=== PATIENT | female | born 1985 | race Caucasian/White ===

== ENCOUNTER → 2023-12-10 08:02 | Outpatient (REF) | payer OTHER, SELFPAY ==
[2023-12-10 09:06] LABS: % Basophils 0.5 % (0-2); % Eosinophils 0.7 % (0-6); % Immature Granulocytes 0.5 % (0-0.5); % Monocytes 9.2 % (1.7-9.3); % Neutrophils 55.1 % (42.2-75.2); Absolute Monocytes 0.5 10^3/uL (0.1-0.6); Absolute Neutrophils 3.2 10^3/uL (1.4-6.5); Hematocrit 38.9 % (37.0-47.0); Mean Corp Hgb Conc. 33.4 g/dL (33.0-37.0); Mean Corpuscular Hgb 27.7 pg (27.0-31.0); Mean Corpuscular Volume 82.9 fL (81.0-99.0); Mean Platelet Volume 9.1 fL (7.4-10.4); Nucleated Red Blood Cells % 0 %; Platelet Count 246 10^3/uL (130-400); Red Blood Cell Count 4.69 10^6/uL (4.20-5.40); Red Cell Dist. Width 12.3 % (11.5-14.5); Urine Albumin Negative (Neg - Trace); Urine Bilirubin 1+ (Negative); Urine Character Clear (Clear); Urine Color Yellow; Urine Glucose Negative (Negative); Urine Ketone Negative (Negative); Urine Leukocyte Negative (Negative); Urine Nitrite Negative (Negative); Urine Occult Blood 3+ (Negative); Urine Urobilinogen Negative (Neg - 1+); White Blood Cell Count 5.8 10^3/uL (4.8-10.8)
[2023-12-10 09:12] LABS: Urine Squamous Cell 26-30 /LPF (Few)
[2023-12-10 09:13] LABS: Urine Bacteria Few (Negative)
[2023-12-10 09:29] LABS: ALT (SGPT) 21 U/L (0-35); AST (SGOT) 40 U/L (14-36); Albumin 4.5 g/dl (3.5-5.0); Alkaline Phosphatase 45 U/L (38-126); Blood Urea Nitrogen 17 mg/dl (7-17); Calcium 9.2 mg/dl (8.4-10.2); Carbon Dioxide 24 mmol/L (22-30); Chloride 106 mmol/L (98-107); Glucose 96 mg/dl (70-99); HDL Cholesterol 67 mg/dl; Iron 176 ug/dl (37-170); LDL Cholesterol, Calculated 91 mg/dl; Sodium 136 mmol/L (135-145); Total Bilirubin 1.1 mg/dl (0.2-1.3); Total Cholesterol 172 mg/dl (50-199); Total Protein 7.4 g/dl (6.3-8.2); Triglyceride 74 mg/dl (10-149); Very Low Density Lipoprotein 14 mg/dl (0-30); eGFR > 60.00
[2023-12-10 09:33] LABS: C-Reactive Protein < 5.00 mg/L (0.0-10.00)
[2023-12-10 09:39] LABS: Percent Saturation 58 % (20-50); Total Iron Binding Capacity 299 ug/dl (265-497)
[2023-12-10 09:46] LABS: Erythrocyte Sed Rate 2 mm/hour (0-20)
[2023-12-10 09:51] LABS: Free T3 3.77 pg/ml (2.77-5.27); Free T4 1.03 ng/dl (0.78-2.19); Vitamin D, 25-OH*** 40.1 ng/mL (30-80)
[2023-12-10 09:55] LABS: Progesterone 5.59 ng/ml
[2023-12-10 10:05] LABS: Cortisol, Random 13.7 ug/dl; TSH 1.17 uIU/ml (0.47-4.68)
[2023-12-10 10:09] LABS: Ferritin 32.2 ng/ml (6.24-137)
[2023-12-10 10:10] LABS: Estradiol 50.9 pg/ml
[2023-12-11 12:04] LABS: Thyroglobulin Antibodies 1.5 IU/mL (0.0-4.0); Thyroid Peroxidase Ab (TPO) 0.8 IU/mL (0.0-9.0)
[2023-12-11 21:33] LABS: Insulin, Random 6 uIU/mL
[2023-12-11 21:58] LABS: Homocysteine 7 umol/L (0-15)
[2023-12-11 22:14] LABS: DHEA Sulfate 50 ug/dL (61-337)
[2023-12-12 02:38] LABS: 5-a-Dihydrotestosterone, LC-MS 27.5 pg/mL (24.0-208.0)
[2023-12-12 06:51] LABS: Zinc 77.6 ug/dL (60.0-120.0)
[2023-12-13 09:53] LABS: Free Testosterone 1.6 pg/mL (1.3-9.2); Sex Hormone Binding Globulin 46 nmol/L (25-122); Total Testosterone,Female/Chil 12 ng/dL (9-55)
== END ==
LOC: REG 08:02
PROVIDERS: ATTENDING PHYSICIAN Nurse Practitioner Family; FAMILY PHYSICIAN Family Medicine
DX: D25.9 Leiomyoma of uterus, unspecified (principal); E34.9 Endocrine disorder, unspecified; E55.9 Vitamin D deficiency, unspecified; E53.8 Deficiency of other specified B group vitamins; R53.83 Other fatigue; L70.9 Acne, unspecified
CPT/HCPCS: 36415; 80053; 80061; 81003; 81015; 82306; 82533; 82627; 82642; 82670; 82728; 83090; 83525; 83540; 83550; 83735; 84144; 84270; 84402; 84403; 84439; 84443; 84481; 84630; 85025; 85652; 86140; 86376; 86800

== ENCOUNTER → 2024-01-02 18:32 | Outpatient (REF) | payer OTHER, SELFPAY | LOC: WDC 18:32 | PROVIDERS: ATTENDING PHYSICIAN Family Medicine; FAMILY PHYSICIAN Nurse Practitioner Family | DX: Z12.31 Encounter for screening mammogram for malignant neoplasm of breast (principal) | CPT/HCPCS: 77063; 77067 ==

== ENCOUNTER → 2024-01-20 09:46 | Outpatient (REF) | payer OTHER, SELFPAY | LOC: HWRAD 09:46 | PROVIDERS: ATTENDING PHYSICIAN Nurse Practitioner Family; FAMILY PHYSICIAN Family Medicine | DX: D25.9 Leiomyoma of uterus, unspecified (principal) | CPT/HCPCS: 76830; 76856 ==

== ENCOUNTER → 2024-01-23 07:35 | Outpatient (REF) | payer OTHER, SELFPAY | LOC: HWRAD 07:35 | PROVIDERS: ATTENDING PHYSICIAN Nurse Practitioner Family; FAMILY PHYSICIAN Family Medicine | DX: R31.9 Hematuria, unspecified (principal) | CPT/HCPCS: 76700 ==

== ENCOUNTER → 2024-02-20 06:57 | Outpatient (REF) | payer OTHER, SELFPAY ==
[2024-02-20 07:54] LABS: Urine Albumin Negative (Neg - Trace); Urine Bilirubin Negative (Negative); Urine Character Clear (Clear); Urine Color Yellow; Urine Glucose Negative (Negative); Urine Ketone Negative (Negative); Urine Leukocyte Trace (Negative); Urine Nitrite Negative (Negative); Urine Occult Blood 4+ (Negative); Urine Urobilinogen Negative (Neg - 1+)
[2024-02-20 08:36] LABS: FSH 3.6 mIU/ml; Luteinizing Hormone 4.75 mIU/ml; Progesterone 5.48 ng/ml; Prolactin 28.6 ng/ml (3.0-18.6)
[2024-02-20 08:50] LABS: Estradiol 37.7 pg/ml
[2024-02-20 09:07] LABS: Urine Mucus Few
[2024-02-20 09:08] LABS: Urine Amorphous Seen
[2024-02-20 09:14] LABS: Urine Red Blood Cell 30-40 /HPF (0-2); Urine White Cell 0-2 /HPF (0-5)
[2024-02-20 09:17] LABS: Urine Bacteria Few (Negative)
[2024-02-20 09:27] LABS: Folate 16.3 ng/ml (2.76-20); Vitamin B12 317 pg/ml (239-931)
[2024-02-20 12:49] LABS: Glycohemoglobin (HgbA1c) 5.4 % (4.0-5.6)
[2024-02-21 14:20] LABS: DHEA Sulfate 49 ug/dL (61-337)
== END ==
LOC: REG 06:57
PROVIDERS: ATTENDING PHYSICIAN Nurse Practitioner Family
DX: E34.9 Endocrine disorder, unspecified (principal); E55.9 Vitamin D deficiency, unspecified; E53.8 Deficiency of other specified B group vitamins; R53.83 Other fatigue; L70.9 Acne, unspecified; N94.6 Dysmenorrhea, unspecified; D25.9 Leiomyoma of uterus, unspecified; R31.9 Hematuria, unspecified
CPT/HCPCS: 36415; 81003; 81015; 82607; 82627; 82642; 82670; 82746; 83001; 83002; 83036; 84144; 84146; 84270; 84402; 84403; 87086

== ENCOUNTER → 2024-04-11 11:26 | Outpatient (REF) | payer OTHER, SELFPAY | LOC: CPAP 11:26 | PROVIDERS: ATTENDING PHYSICIAN Obstetrics & Gynecology | DX: Z01.419 Encounter for gynecological examination (general) (routine) without abnormal findings (principal); Z11.51 Encounter for screening for human papillomavirus (HPV) | CPT/HCPCS: 87624; G0123 ==

== ENCOUNTER → 2024-07-11 13:51 | Outpatient (REF) | payer OTHER, SELFPAY | LOC: HWRAD 13:51 | PROVIDERS: ATTENDING PHYSICIAN Surgery | DX: N20.0 Calculus of kidney (principal); R31.29 Other microscopic hematuria | CPT/HCPCS: 74176 ==

== ENCOUNTER → 2025-02-05 08:36 | Outpatient (REF) | payer OTHER, SELFPAY | LOC: WDC 08:36 | PROVIDERS: ATTENDING PHYSICIAN Obstetrics & Gynecology | DX: Z12.31 Encounter for screening mammogram for malignant neoplasm of breast (principal) | CPT/HCPCS: 77063; 77067 ==

== ENCOUNTER → 2025-02-08 09:11 | Outpatient (REF) | payer OTHER, SELFPAY | LOC: WDC 09:11 | PROVIDERS: ATTENDING PHYSICIAN Obstetrics & Gynecology | DX: R92.8 Other abnormal and inconclusive findings on diagnostic imaging of breast (principal) | CPT/HCPCS: 76642 ==

== ENCOUNTER → 2025-03-06 10:18 | Outpatient (REF) | payer OTHER, SELFPAY ==
[2025-03-06 11:43] LABS: ALT (SGPT) 14 U/L (0-35); AST (SGOT) 23 U/L (14-36); Albumin 4.5 g/dl (3.5-5.0); Alkaline Phosphatase 28 U/L (38-126); Blood Urea Nitrogen 16 mg/dl (7-17); Calcium 9.2 mg/dl (8.4-10.2); Carbon Dioxide 24 mmol/L (22-30); Chloride 108 mmol/L (98-107); Glucose 94 mg/dl (70-99); Potassium 4.2 mmol/L (3.5-5.1); Sodium 140 mmol/L (135-145); Total Bilirubin 0.8 mg/dl (0.2-1.3); Total Protein 7.2 g/dl (6.3-8.2); eGFR > 60.00
== END ==
LOC: REG 10:18
PROVIDERS: ATTENDING PHYSICIAN Dermatology
DX: Z79.899 Other long term (current) drug therapy (principal)
CPT/HCPCS: 36415; 80053